=== PATIENT | female | born 1935 | race Hispanic/Latino ===

== ENCOUNTER 2017-10-16 13:37 | Outpatient (CLI) | payer MEDICARE ==
--- NOTE | 2017-10-16 15:24 | Cat Scan Report ---
CT scan of the abdomen and pelvis without IV contrast: History: Urinary tract infection. Findings: Evidence of mild COPD with interstitial thickening lower lobes. No pleural or pericardial effusion. Suspected paraesophageal hiatal hernia. Normal liver spleen pancreas and gallbladder. 2 x 1 cm cyst left adrenal gland. Normal right adrenal gland. 7.7 x 7.5 cm cyst left kidney. 1.7 cm cyst right kidney. No evidence of hydronephrosis. Normal bladder. No free intraperitoneal fluid or air. No evidence of adenopathy. Stable inferior vena cava filter. Gaseous colon with stool in colon. Diverticulosis sigmoid colon without evidence of diverticulitis. No evidence of appendicitis. Incidentally noted catheter entering the pelvis from the lower anterior abdominal wall. Impression: Suspected large paraesophageal hiatal hernia. Left adrenal cyst. Cysts right and left kidney. Diverticulosis sigmoid colon.
== END 2017-10-16 13:38 | disposition home or self-care (01) ==
LOC: CT 13:37
PROVIDERS: ATTEND Urology
DX: K57.30 Diverticulosis of large intestine without perforation or abscess without bleeding (principal); N28.1 Cyst of kidney, acquired; E27.8 Other specified disorders of adrenal gland; J44.9 Chronic obstructive pulmonary disease, unspecified; Z85.038 Personal history of other malignant neoplasm of large intestine
CPT/HCPCS: 74176